=== PATIENT | male | born 2000 | race Caucasian/White ===

== ENCOUNTER 2022-09-26 12:05 | Emergency (ER) | payer SELFPAY ==
[~2022-09-26] VITALS: Ht 182.9 cm; Wt 79.0 kg
[2022-09-26 12:09] VITALS: BP 141/91
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
== END 2022-09-26 13:28 | disposition home or self-care (01) ==
LOC: ER 12:06
DX: L03.211 Cellulitis of face (principal)
CPT/HCPCS: 99281

== ENCOUNTER 2023-09-21 12:21 | Emergency (ER) | payer MEDICAID ==
[~2023-09-21] VITALS: Ht 182.9 cm; Wt 51.2 kg
[2023-09-21 12:39] VITALS: BP 164/105; PULSE 130; RESP 20; TEMP 98.9; O2SAT 97
[2023-09-21] MEDS ORDERED: normal saline 1000ML IV soln IV ONE (14:20)
[2023-09-21] MEDS ORDERED: CefTRIAXone 2gm/D5W 50ml BAG 50 ML IV ONE (14:20)
== END 2023-09-21 14:28 | disposition left against medical advice (07) ==
LOC: ER 12:21
DX: J34.0 Abscess, furuncle and carbuncle of nose (principal); F17.200 Nicotine dependence, unspecified, uncomplicated
CPT/HCPCS: 99281

== ENCOUNTER 2024-04-13 00:16 | Emergency (ER) | payer MEDICAID ==
[~2024-04-13] VITALS: Ht 180.3 cm; Wt 84.8 kg
[2024-04-13 00:17] VITALS: BP 169/107; PULSE 114; RESP 18; TEMP 98; O2SAT 99
== END 2024-04-13 03:27 | disposition left against medical advice (07) ==
LOC: ER 00:17
DX: L02.01 Cutaneous abscess of face (principal); Z53.21 Procedure and treatment not carried out due to patient leaving prior to being seen by health care provider